=== PATIENT | male | born 1990 | race Caucasian/White ===

== ENCOUNTER 2019-11-20 09:07 | Emergency (ER) | payer MEDICAID ==
[~2019-11-20] VITALS: Ht 177.8 cm; Wt 74.8 kg
[2019-11-20 09:10] VITALS: BP 140/83
--- NOTE | 2019-11-20 10:03 | NUR ---
[employer]: PT AMBULATORY WITH STEADY GAIT TO ROOM AT THIS TIME. BENITO
== END 2019-11-20 10:25 ==
LOC: ED 10:19
DX: G89.11 Acute pain due to trauma (principal); M25.512 Pain in left shoulder; V00.131A Fall from skateboard, initial encounter; Y93.51 Activity, roller skating (inline) and skateboarding; Y92.830 Public park as the place of occurrence of the external cause; Y99.8 Other external cause status
CPT/HCPCS: 99283